=== PATIENT | male | born 1970 | race Caucasian/White ===

== ENCOUNTER 2017-09-15 22:26 | Emergency (ER) | payer MEDICAID, OTHER ==
[~2017-09-15] VITALS: Ht 175.3 cm; Wt 120.8 kg
[~2017-09-15 22:26] MED LIST: SERT100T PO
[2017-09-15 22:48] VITALS: BP 128/96
--- NOTE | 2017-09-15 22:53 | NUR ---
PT TAKEN TO [facility]
--- NOTE | 2017-09-15 23:08 | NUR ---
Dr. Calderon evaluating patient
--- NOTE | 2017-09-15 23:09 | NUR ---
PT TAKEN TO BED 11
[2017-09-15] MEDS ORDERED: NACL 0.9% 1,000 ML IV ONE (23:15)
--- NOTE | 2017-09-15 23:24 | NUR ---
X-Ray at bedside.
[2017-09-15 23:44] LABS: BASOPHILS # (AUTO) 0.4 K/uL (0.00-0.22); BASOPHILS % (AUTO) 3.6 % (0.0-2.0); EOSINOPHILS # (AUTO) 0.1 K/uL (0-0.4); EOSINOPHILS % (AUTO) 1.3 % (0.0-4.0); HEMOGLOBIN 13.6 g/dL (12.0-18.0); LYMPHOCYTES # (AUTO) 1.2 K/uL (2.0-11.5); LYMPHOCYTES % (AUTO) 12.4 % (20.5-51.1); MEAN CORPUSCULAR HEMOGLOBIN 29 pg (27-31); MEAN CORPUSCULAR HGB CONC 33 g/dL (33-37); MEAN CORPUSCULAR VOLUME 87 fL (80-94); MONOCYTES # (AUTO) 0.4 K/uL (0.8-1.0); MONOCYTES % (AUTO) 3.7 % (1.7-9.3); NEUTROPHILS # (AUTO) 7.6 K/uL (1.8-7.7); PLATELET COUNT (AUTO) 286 K/uL (140-450); RED CELL DISTRIBUTION WIDTH 13.8 % (11.6-13.7); WHITE BLOOD COUNT (AUTO) 9.8 K/uL (4.8-10.8)
--- NOTE | 2017-09-15 23:47 | NUR ---
46 YO MALE PRESENTS TO THE ER C/O DIZZINESS, CHILLS, AND SWEATING. PT DENIES ANY PAST MEDICAL HISTORY. PT STATES SYMPTOMS OCCURED WHEN HE WOKE UP FROM SLEEPING AROUND 2030 TODAY. PT IS AA&O X4. PT HAS DIZZINESS AND CHILLS, DENIES HEADACHE, N/T, OR FEVER. PT DENIES ANY SOB. PT HAS NAUSEA BUT DENIES ANY VOMIT. ABDOMEN IS ROUND, SOFT, AND NONTENDER. BOWEL SOUNDS ACTIVE IN ALL 4 QUADRANTS. PT DENIES ANY DIARRHEA. PT IS LAYING IN BED WITH AT BEDSIDE. VSS. ALL NEEDS ADDRESSED AT THIS TIME. ER MD NOTIFIED OF PT STATUS.
[2017-09-15 23:49] LABS: BARBITURATE, URINE NEG. ng/ml (NEG <=200); BENZODIAZEPINE, URINE NEG. ng/mL (NEG <=200); CANNABINOID, URINE NEG. ng/mL (NEG <=50); COCAINE, URINE NEG. ng/mL (NEG <=300); OPIATE, URINE NEG. ng/mL (NEG <=2000); PHENCYCLIDINE SCREEN,URINE NEG. ng/mL (NEG <=25)
[2017-09-15 23:50] LABS: ANION GAP 8.9 (8-16); CARBON DIOXIDE 27.3 mmol/L (21-32); CREATININE 0.9 mg/dL (0.7-1.3); POTASSIUM 4.2 mmol/L (3.5-5.1)
[2017-09-15 23:56] LABS: ALBUMIN 3.8 g/dL (3.4-5.0); TOTAL BILIRUBIN 0.4 mg/dL (0.0-1.0)
[2017-09-16 00:11] LABS: CREATINE KINASE MB 4.5 ng/mL (0-3.6)
--- NOTE | 2017-09-16 00:54 | NUR ---
PT RESTING IN BED. PT STATES HE FEELS BETTER AND IS NO LONGER DIZZY. AT BEDSIDE.
--- NOTE | 2017-09-16 01:36 | NUR ---
Dr. Calderon re-evaluating patient at bedside.
--- NOTE | 2017-09-16 02:04 | NUR ---
IV removed, catheter intact and site benign. Applied folded 4x4 gauze and tape to stop bleeding.
[2017-09-16 02:05] VITALS: BP 152/99
--- NOTE | 2017-09-16 02:06 | NUR ---
Patient discharged with v/s stable. Written and verbal after care instructions given and explained. Patient alert, oriented and verbalized understanding of instructions. Ambulatory with steady gait. All questions addressed prior to discharge. ID band removed. Patient advised to follow up with PMD. Rx of NAPROSYN 500MG given. Patient educated on indication of medication including possible reaction and side effects. Opportunity to ask questions provided and answered.
== END 2017-09-16 02:06 | disposition home or self-care (01) ==
LOC: MED 22:26
DX: R53.1 Weakness (principal); Z79.899 Other long term (current) drug therapy
CPT/HCPCS: 36415; 71010; 80053; 80305; 82550; 82553; 84484; 85025; 93005; 96360; 99285; J7030; Q0092